=== PATIENT | female | born 1980 | race Caucasian/White ===

== ENCOUNTER 2017-01-15 14:05 | Emergency (ER) | payer SELFPAY ==
[2017-01-15] MEDS ORDERED: ASPIRIN 81 MG TABLET, CHEWABLE PO ONE (15:42)
--- NOTE | 2017-01-15 15:47 | ER Document Report ---
ED Medical Screen (RME) - General Chief Complaint: Shortness Of Breath Stated Complaint: CHEST PAIN/SHORTNESS OF BREATH Time seen by provider: 15:44 Mode of Arrival: Ambulatory Information source: Patient Notes: 36-year-old female presents to ED for chest pain chest tightness severe pressure shortness of breath headache and neck pain. She states that the pain sometimes radiates to the left breast and down her arm arm becomes very uncomfortable. She states this is been going on and off for the last couple days. She denies any runny nose states she does have some feeling like she needs to clear her throat frequently. She has a family history of her dad had a heart attack in his early 50s and of 59 from pulmonary fibrosis, her mother's brother had a heart attack at 60. She has a history of bronchitis bipolar anxiety depression and skin grafts to her face. She states she smokes about 15 cigarettes a day and smokes marijuana occasionally. Last menstrual period 01/06/[address] melendez when he stated this patient needed to have a cardiac workup. TRAVEL OUTSIDE OF THE [place] IN LAST 30 DAYS: No - HPI Onset: Other - Several days Onset/Duration: Intermittent Quality of pain: Pressure - Severe pressure and tightness - Related Data Allergies/Adverse Reactions: No Known Allergies Allergy (Unverified 01/20/12 21:30) Past Medical History Renal/ Medical History: Denies: Hx Peritoneal Dialysis Past Surgical History: Reports: Hx Section - x2 - Immunizations Hx Diphtheria, Pertussis, Tetanus Vaccination: Yes Physical Exam - Vital signs Vitals: Temp Pulse Resp BP Pulse Ox 98.1 F 78 20 123/78 100 01/15/17 14:38 01/15/17 14:38 01/15/17 14:38 01/15/17 14:38 01/15/17 14:38 Course - Vital Signs Vital signs: Temp Pulse Resp BP Pulse Ox 98.1 F 78 20 123/78 100 01/15/17 14:38 01/15/17 14:38 01/15/17 14:38 01/15/17 14:38 01/15/17 14:38
[2017-01-15 16:31] LABS: ABSOLUTE BASOPHILS # (AUTO) 0.1 10^3/uL (0.0-0.2); ABSOLUTE EOSINOPHILS # (AUTO) 0.3 10^3/uL (0.0-0.6); ABSOLUTE LYMPHOCYTES (AUTO) 4.2 10^3/uL (0.5-4.7); ABSOLUTE MONOCYTES (AUTO) 0.8 10^3/uL (0.1-1.4); ABSOLUTE NEUT (AUTO) 5.5 10^3/uL (1.7-8.2); BASOPHILS % (AUTO) 1.3 % (0-2); EOSINOPHILS % (AUTO) 2.6 % (0-6); HEMATOCRIT 45.1 % (36.0-47.0); HGB HCT DIFFERENCE -0.1; LYMPHOCYTES % (AUTO) 38.6 % (13-45); MEAN CORPUSCULAR HEMOGLOBIN 27.1 pg (27.0-33.4); MEAN CORPUSCULAR HGB CONC 33.2 g/dL (32.0-36.0); MEAN CORPUSCULAR VOLUME 82 fl (80-97); RED BLOOD COUNT 5.52 10^6/uL (3.72-5.28); RED CELL DISTRIBUTION WIDTH 15.9 % (11.5-14.0); SEGMENTED NEUTROPHILS % (AUTO) 50.5 % (42-78); WHITE BLOOD COUNT 10.9 10^3/uL (4.0-10.5)
--- NOTE | 2017-01-15 16:36 | ER Document Report ---
ED Cardiac - General Mode of Arrival: Ambulatory Information source: Patient TRAVEL OUTSIDE OF THE [place] IN LAST 30 DAYS: No - HPI Patient complains to provider of: Chest pain, Shortness of breath Chest pain location: Under breast - left Quality of pain: Other - see notes above Chest pain radiation location: Left arm Cardiac risk factors: Smoker Associated symptoms: Other - see notes above <ELTON VALDES - Last Filed: 01/15/17 16:30> <SUNG SETH - Last Filed: 01/15/17 18:23> - General Chief Complaint: Shortness Of Breath Stated Complaint: CHEST PAIN/SHORTNESS OF BREATH Notes: 36 year old female with history of chronic headaches presents to the ED complaining of a constant chest pain and headache for the past 2-3 days. Patient reports that her chest pain feels like as if a child is sitting on her chest and gets intermittent worsening flares of pain. Patient reports that the pain is sharp just under her left medial breast, but is dull as it radiates down her left arm to her fingers. Patient experiences sharp left breast pain with inspiration and dull pain with expiration. Patient has left eye pain that radiates to the head and down to the left shoulder. Patient denies history of heart disease, but reports that she has family history of it. (ELTON VALDES) - Related Data Allergies/Adverse Reactions: No Known Allergies Allergy (Verified 01/15/17 16:34) Past Medical History - General Information source: Patient - Social History Smoking Status: Current Every Day Smoker Family History: Other - heart disease Patient has suicidal ideation: Yes Patient has homicidal ideation: No Renal/ Medical History: Denies: Hx Peritoneal Dialysis Past Surgical History: Reports: Hx Section - x2 - Immunizations Hx Diphtheria, Pertussis, Tetanus Vaccination: Yes <ELTON VALDES - Last Filed: 01/15/17 16:30> Review of Systems - Review of Systems Constitutional: No symptoms reported EENT: See HPI, Eye pain - left eye pain that radiates to the head and left shoulder Cardiovascular: See HPI, Chest pain - under left breast Respiratory: See HPI, Hurts to breathe Gastrointestinal: No symptoms reported Genitourinary: No symptoms reported Female Genitourinary: No symptoms reported Musculoskeletal: No symptoms reported Skin: No symptoms reported Hematologic/Lymphatic: No symptoms reported Neurological/Psychological: No symptoms reported -: Yes All other systems reviewed and negative <VALDES,ELTON - Last Filed: 01/15/17 16:30> Physical Exam - General General appearance: Alert In distress: None - HEENT Head: Normocephalic, Atraumatic Eyes: Normal Extraocular movements intact: Yes Pupils: PERRL - Respiratory Respiratory status: No respiratory distress Chest status: Tender Breath sounds: Normal Chest palpation: Tender - Reproducible left parasternal and medial breast tenderness to palpation. Winces in pain with palpation. - Cardiovascular Rhythm: Regular Heart sounds: Normal auscultation - Abdominal Inspection: Normal - Back Back: Normal - Extremities General upper extremity: Normal inspection, Normal ROM General lower extremity: Normal inspection, Nontender - no calf tenderness, Normal ROM. No: Edema - Neurological Neuro grossly intact: Yes Cognition: Normal Orientation: AAOx4 [place] Coma Scale Eye Opening: Spontaneous [place] Coma Scale Verbal: Oriented [place] Coma Scale Motor: Obeys Commands Ravi Coma Scale Total: 15 Speech: Normal - Psychological Associated symptoms: Normal affect, Normal mood - Skin Skin Temperature: Warm Skin Moisture: Dry Skin Color: Normal <ELTON VALDES - Last Filed: 01/15/17 16:30> Course - Laboratory Result Diagrams: 01/15/17 16:20 01/15/17 16:20 <ELTON VALDES - Last Filed: 01/15/17 16:30> - Laboratory Result Diagrams: 01/15/17 16:20 01/15/17 16:20 <SUNG SETH - Last Filed: 01/15/17 18:23> - Re-evaluation Re-evalutation: 01/15/17 18:17 Clinically the pain seems to be more chest wall but differential diagnosis was discussed with the patient. She has a low heart score. She had significant reproducibility with chest palpation. Discussed with her lifestyle modifications including smoking cessation. She voices understanding and will get follow-up or return if worsening. (SUNG SETH) - Vital Signs Vital signs: Temp Pulse Resp BP Pulse Ox 98.1 F 78 20 123/78 100 01/15/17 14:38 01/15/17 14:38 01/15/17 14:38 01/15/17 14:38 01/15/17 14:38 - Laboratory Laboratory results interpreted by me: 01/15/17 01/15/17 16:20 16:20 WBC 10.9 H RBC 5.52 H RDW 15.9 H Sodium 145.4 H Calcium 10.4 H Total Protein 8.3 H Albumin 5.1 H Discharge <ELTON VALDES - Last Filed: 01/15/17 16:30> <SUNG SETH - Last Filed: 01/15/17 18:23> - Discharge Clinical Impression: Chest pain Condition: Good Disposition: HOME, SELF-CARE Additional Instructions: You have been diagnosed with Chest Pain.~ Currently, there is no identified emergent medical condition.~ Though most causes of chest pain are benign, please return immediately if you are worsening, develop fever > 100.5, or for other concern. All medications prescribed should be taken as directed on the label. Any medication may cause side effects. If an adverse effect occurs, notify your doctor or return to the emergency room.~ Narcotics or sedatives may cause drowsiness, therefore, you should not drive, operate machinery, climb ladders, etc. Alcohol should never be used while taking these medications.~ Pain medications also can cause significant constipation so you should use a stool softener if you are using any significant amount.~ Antibiotics should be taken until the entire amount is finished. Unless specifically told otherwise, continue any routine medicines like blood pressure pills, hormones, etc. Be sure you have informed us about any medicines you are taking and any allergies. Also, ensure you let your pharmacy and physician know of any medication changes or additional medications during the next business day to help keep records consistent and ensure your medication safety. You have been seen in the Emergency Department for evaluation to identify and treat any emergent medical conditions.~ Though all emergent medical conditions are evaluated, it is impossible to evaluate all conditions in the Emergency Department setting. As such, a follow-up appointment with a physician/medical provider and obtaining regular medical care is mandatory.~ You will need to establish a primary care physician for these reasons. If you have difficulty obtaining a primary care physician, please contact your insurance company.~ If you are uninsured and have difficulty, you should contact a bilingual patient support caseworker or consider care through your formerly [facility]. Because you do not have a primary care provider you have been referred for follow up. This referral is ONLY for the follow up of this acute need. You must call ahead for an appointment to be seen in their office as you will not be seen if you arrive at their office without an appointment. Please take your ED discharge instructions to your follow up doctor's appointment. If you are interested in having the referral provider continue to see you after the initial ED follow up appointment, you will be required to follow the process of the office practice for accepting new patients. Prescriptions: Acetaminophen with Codeine [Tylenol #3 Tablet] 1 each PO Q4HP PRN #14 tablet PRN Reason: Forms: Smoking Cessation Education Referrals: [facility] [Provider Group] - Follow up as needed Scribe Attestation: 01/15/17 18:23 I personally performed the services described in the documentation, reviewed and edited the documentation which was dictated to the scribe in my presence, and it accurately records my words and actions. (SUNG SETH) Scribe Documentation - Scribe Written by Erine:: Tuan Ponce, 01/15/2017 1648 acting as scribe for :: Cesar <ELTON VALDES - Last Filed: 01/15/17 16:30>
[2017-01-15 16:45] LABS: ALANINE AMINOTRANSFERASE 44 U/L (9-52); ALBUMIN 5.1 g/dL (3.5-5.0); ALKALINE PHOSPHATASE 91 U/L (38-126); ANION GAP 14 (5-19); ASPARTATE AMINO TRANSFERASE 34 U/L (14-36); BILIRUBIN,DIRECT 0.4 mg/dL (0.0-0.4); BILIRUBIN,TOTAL 0.6 mg/dL (0.2-1.3); BLOOD UREA NITROGEN 8 mg/dL (7-20); CALCIUM 10.4 mg/dL (8.4-10.2); CARBON DIOXIDE 28 mmol/L (22-30); CHLORIDE 103 mmol/L (98-107); CREATINE KINASE 66 U/L (30-135); CREATININE RESULT 0.65 mg/dL (0.52-1.25); GLUCOSE 85 mg/dL (75-110); MAGNESIUM 2.2 mg/dL (1.6-2.3); POTASSIUM 4.5 mmol/L (3.6-5.0); SODIUM 145.4 mmol/L (137-145); TOTAL PROTEIN 8.3 g/dL (6.3-8.2)
[2017-01-15 16:58] LABS: CREATINE KINASE MB < 0.22 ng/mL (<4.55); TROPONIN I < 0.012 ng/mL
[2017-01-15 18:49] VITALS: BP 128/72
--- NOTE | 2017-01-15 21:40 | EKG REPORT ---
SEVERITY:- NORMAL ECG - SINUS RHYTHM : Confirmed by: Aleksandra Vinson 15-Jan-2017 21:39:31
== END 2017-01-15 18:49 | disposition home or self-care (01) ==
LOC: ER 14:05
DX: R07.9 Chest pain, unspecified (principal); R06.02 Shortness of breath; R51 Headache; H57.12 Ocular pain, left eye; F17.200 Nicotine dependence, unspecified, uncomplicated
CPT/HCPCS: 36415; 71020; 80053; 82550; 82553; 83735; 84443; 84484; 85025; 85379; 93005; 93010; 99285

== ENCOUNTER 2017-11-08 22:09 | Emergency (ER) | payer SELFPAY ==
[2017-11-08 22:45] LABS: APPEARANCE,URINE CLEAR; BILIRUBIN,URINE NEGATIVE (NEGATIVE); COLOR,URINE COLORLESS; GLUCOSE, URINE NEGATIVE (NEGATIVE); KETONES,URINE NEGATIVE (NEGATIVE); LEUKOCYTE ESTERASE,URINE NEGATIVE (NEGATIVE); NITRITE,URINE NEGATIVE (NEGATIVE); PROTEIN,URINE NEGATIVE (NEGATIVE); URINE SPECIFIC GRAVITY 1.003; UROBILINOGEN,URINE NEGATIVE mg/dL (<2.0)
--- NOTE | 2017-11-09 00:57 | ER Document Report ---
ED Skin Rash/Insect Bite/Abscs - General Chief Complaint: Rash Stated Complaint: RASH Time Seen by Provider: 11/09/17 00:14 Mode of Arrival: Ambulatory Information source: Patient Notes: 37-year-old female presents to the ED for complaint of rash to neck chest and abdomen fever 2 days but she did not take her temperature and body aches. TRAVEL OUTSIDE OF THE [place] IN LAST 30 DAYS: No - HPI Patient complains to provider of: Skin rash/lesion, Other - Body aches and feels like she had a fever Onset: Other - She states rashes been there may be a week or 2 steadily increasing. Body aches for the last several days and feeling like she had a fever for the last 2 days Onset/Duration: Gradual Quality of pain: Achy - Body aches Severity: Mild Pain Level: 1 Skin Character: Rash Quality of rash: Itchy Identify cause: No Exacerbated by: Denies Relieved by: Denies Similar symptoms previously: No Recently seen / treated by doctor: No - Related Data Allergies/Adverse Reactions: No Known Allergies Allergy (Verified 01/15/17 16:34) Past Medical History - General Information source: Patient - Social History Smoking Status: Former Smoker - States she quit smoking recently Cigarette use (# per day): No Chew tobacco use (# tins/day): No Smoking Education Provided: No Frequency of alcohol use: Rare Drug Abuse: Marijuana 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 denies: CVA, DM, Thyroid Disfunction Patient has suicidal ideation: No Patient has homicidal ideation: No - Past Medical History Cardiac Medical History: Reports: None Pulmonary Medical History: Reports: Hx Bronchitis EENT Medical History: Reports: None Neurological Medical History: Reports: None Endocrine Medical History: Reports: None Renal/ Medical History: Reports: Hx Ovarian Cysts, Other - Endometriosis, moderate dysplasia of cervix Malignancy Medical History: Reports: None GI Medical History: Reports: Hx Irritable Bowel Musculoskeltal Medical History: Reports Hx Musculoskeletal Trauma Skin Medical History: Reports None Psychiatric Medical History: Reports: None Traumatic Medical History: Reports: Hx Fractures - Toes and nose Infectious Medical History: Reports: None Past Surgical History: Reports: Hx Section - x2, Hx Gynecologic Surgery - LEEP procedure for moderate dysplasia, Other - Facial skin grafts and plastic surgery - Immunizations Immunizations up to date: Yes Hx Diphtheria, Pertussis, Tetanus Vaccination: Yes Review of Systems - Review of Systems Constitutional: No symptoms reported EENT: Nose discharge, Sinus pressure, Sinus discharge Cardiovascular: No symptoms reported Respiratory: No symptoms reported Gastrointestinal: No symptoms reported Genitourinary: No symptoms reported Female Genitourinary: No symptoms reported Musculoskeletal: Muscle pain - Body aches Skin: Rash - Neck chest and abdomen Hematologic/Lymphatic: No symptoms reported Neurological/Psychological: No symptoms reported Physical Exam - Vital signs Vitals: Temp Pulse BP Pulse Ox 99.0 F 61 142/59 H 97 11/08/17 22:25 11/08/17 22:25 11/08/17 22:25 11/08/17 22:25 Interpretation: Normal - General General appearance: Appears well, Alert - HEENT Head: Normocephalic, Atraumatic Eyes: Normal Pupils: PERRL - Respiratory Respiratory status: No respiratory distress Chest status: Nontender Breath sounds: Normal Chest palpation: Normal - Cardiovascular Rhythm: Regular Heart sounds: Normal auscultation Murmur: No - Abdominal Inspection: Normal Distension: No distension Bowel sounds: Normal Tenderness: Nontender Organomegaly: No organomegaly - Back Back: Normal, Nontender - Extremities General upper extremity: Normal inspection, Nontender, Normal color, Normal ROM , Normal temperature General lower extremity: Normal inspection, Nontender, Normal color, Normal ROM , Normal temperature, Normal weight bearing. No: Ian's sign - Neurological Neuro grossly intact: Yes Cognition: Normal Orientation: AAOx4 [place] Coma Scale Eye Opening: Spontaneous Ravi Coma Scale Verbal: Oriented [place] Coma Scale Motor: Obeys Commands Ravi Coma Scale Total: 15 Speech: Normal Motor strength normal: LUE, RUE, LLE, RLE Sensory: Normal - Psychological Associated symptoms: Normal affect, Normal mood - Skin Skin Temperature: Warm Skin Moisture: Dry Skin Color: Normal Skin irregularity: Rash Location of irregularity: Neck, Abdomen, Chest Irregularity with: Scaling - Circular, Crusting, Other - Circular Course - Re-evaluation Re-evalutation: 11/09/17 01:44 Signs and symptoms consistent with an upper respiratory infection was ringworm to the abdomen chest and neck. Patient was instructed on care of ringworm. Prescription written for ketoconazole. Patient to follow-up with her primary doctor. - Vital Signs Vital signs: Temp Pulse Resp BP Pulse Ox 98.4 F 64 14 120/56 L 98 11/09/17 01:18 11/09/17 01:18 11/09/17 01:18 11/09/17 01:18 11/09/17 01:18 - Laboratory Laboratory results interpreted by me: 11/08/17 22:25 Urine Blood SMALL H Discharge - Discharge Clinical Impression: Ringworm of body URI (upper respiratory infection) Qualifiers: URI type: unspecified URI Qualified Code(s): J06.9 - Acute upper respiratory infection, unspecified HTN (hypertension) Qualifiers: Hypertension type: unspecified Qualified Code(s): I10 - Essential (primary) hypertension Condition: Stable Disposition: HOME, SELF-CARE Instructions: Family Physicians / Practices Additional Instructions: Ringworm (Tinea Corporis) You have a fungal infection of the skin, called tinea corporis. This is sometimes called "ringworm." because it tends forms an enlarging ring on the skin. The infection results from exposure to another person or an animal carrying the fungus, but it is only mildly contagious. There can be mild itching , or sometimes no symptoms at all. The infection is usually treated with antifungal cream. This is applied two or three times daily. Healing may take two or three weeks. Occasionally, oral medication is necessary, for example, when the infection if very large, or if fungus involves the scalp or nails. Fingernail or toenail infections are very difficult to eradicate, often requiring many weeks of treatment. Return for re-examination if your symptoms change significantly -- for example, if you develop fever or chills, red streaks, increasing tenderness, swelling, or blisters at the infection site. UPPER RESPIRATORY ILLNESS: You have a viral infection of the respiratory passages -- a "cold." This common infection causes nasal congestion, drainage, and often sore throat and cough. It is highly contagious. The disease usually lasts about 10 to 14 days. There is no "cure" for the viral infection -- it must run its course. If there is a complication, such as bacterial infection in the nose, sinuses, middle ear, or bronchial tubes, antibiotics may be required. The antibiotics won't affect the virus. Drink plenty of fluids. A humidifier may help. An expectorant medication or decongestant may make you more comfortable. Use acetaminophen or ibuprofen for fever or aches. See the doctor if fever persists over two days, if there is any significant worsening of your symptoms, or if you simply fail to improve as expected. DECONGESTANT MEDICATION: A decongestant medicine has been prescribed. Often this medicine is combined in the same tablet with an antihistamine or expectorant. This type of medicine is helpful in treating a bad cold or sinus condition, as well as in treatment of the nasal congestion of hay fever. It is not of much benefit for lung infections. Decongestant medicines are related to stimulants. They can cause an increase in blood pressure and heart rate. Persons with heart disease and high blood pressure should not take decongestants without discussing this with the physician. If you develop palpitations, chest pain, headache, or tremors, stop the medicine and consult your physician. COUGH-SUPPRESSANT & EXPECTORANT MEDICATION: You are to use a cough medication as needed for relief of symptoms. This medicine is a combination of an expectorant (to make the mucous thinner and more easily "coughed up") and a cough suppressant (to reduce the frequency of coughing). The cough-suppressant medicine is related to narcotics. You may experience mild nausea and sleepiness. Some patients who are very sensitive to narcotics may have stomach pain from this medicine. Taking the medicine with food reduces these side effects. Do not drive or work with machinery until you know how this medicine affects you. The expectorant should have no side effects. Iodine-containing expectorants (such as organidin) should not be taken by persons with active thyroid disease unless approved by your doctor. Call the doctor if you develop shortness of breath, hives, rash, itching, lightheadedness, or severe nausea and vomiting. USE OF ACETAMINOPHEN (Tylenol): Acetaminophen may be taken for pain relief or fever control. It's much safer than aspirin, offering a wider range of "safe" dosages. It is safe during . Some brand names are Tylenol, Panadol, Datril, Anacin 3, Tempra, and Liquiprin. Acetaminophen can be repeated every four hours. The following are maximum recommended dosages: >89 pounds or adults 650 mg to 900 mg Acetaminophen can be repeated every four hours. Maximum dose not to exceed 4000 mg a day. Wash 3 times a day with mild soap rinse well pat dry and apply ketoconazole to affected areas. FOLLOW-UP CARE: If you have been referred to a physician for follow-up care, call the physician s office for an appointment as you were instructed or within the next two days. If you experience worsening or a significant change in your symptoms, notify the physician immediately or return to the Emergency Department at any time for re-evaluation. Prescriptions: Ketoconazole [Nizoral] 30 gm TP TID #30 cream.gm. Forms: Elevated Blood Pressure
[2017-11-09 01:19] VITALS: BP 120/56
== END 2017-11-09 01:18 | disposition home or self-care (01) ==
LOC: ER 22:09
DX: B35.4 Tinea corporis (principal); J06.9 Acute upper respiratory infection, unspecified; J34.89 Other specified disorders of nose and nasal sinuses; M79.1 Myalgia; I10 Essential (primary) hypertension; Z87.891 Personal history of nicotine dependence
CPT/HCPCS: 81001; 99283

== ENCOUNTER 2017-12-17 18:00 | Emergency (ER) | payer SELFPAY ==
--- NOTE | 2017-12-17 19:07 | EKG REPORT ---
SEVERITY:- NORMAL ECG - SINUS RHYTHM : Confirmed by: Danilo Moncada MD 17-Dec-2017 19:06:02
[2017-12-17 19:39] LABS: APPEARANCE,URINE CLEAR; BILIRUBIN,URINE NEGATIVE (NEGATIVE); COLOR,URINE STRAW; GLUCOSE, URINE NEGATIVE (NEGATIVE); KETONES,URINE NEGATIVE (NEGATIVE); LEUKOCYTE ESTERASE,URINE NEGATIVE (NEGATIVE); NITRITE,URINE NEGATIVE (NEGATIVE); PROTEIN,URINE NEGATIVE (NEGATIVE); URINE SPECIFIC GRAVITY 1.002; UROBILINOGEN,URINE NEGATIVE mg/dL (<2.0)
--- NOTE | 2017-12-17 20:00 | ER Document Report ---
ED Medical Screen (RME) - General Chief Complaint: Chest Pain Stated Complaint: DIZZINESS Time Seen by Provider: 12/17/17 19:58 Notes: Patient states that she has had 2 relatives of abdominal aortic aneurysms. She states she feels a pulsating mass in her abdomen and was concerned about this given her family history. She also states that she has had chest pain shortness of breath lightheadedness and dizziness. Patient states she has a history of anxiety and this does not feel like her previous anxiety attacks. TRAVEL OUTSIDE OF THE [place] IN LAST 30 DAYS: No - Related Data Allergies/Adverse Reactions: No Known Allergies Allergy (Verified 12/17/17 18:05) Past Medical History Pulmonary Medical History: Reports: Hx Bronchitis Renal/ Medical History: Reports: Hx Ovarian Cysts. Denies: Hx Peritoneal Dialysis GI Medical History: Reports: Hx Irritable Bowel Musculoskeltal Medical History: Reports Hx Musculoskeletal Trauma Traumatic Medical History: Reports: Hx Fractures - Toes and nose Past Surgical History: Reports: Hx Section - x2, Hx Gynecologic Surgery - LEEP procedure for moderate dysplasia, Other - Facial skin grafts and plastic surgery - Immunizations Immunizations up to date: Yes Hx Diphtheria, Pertussis, Tetanus Vaccination: Yes Physical Exam - Vital signs Vitals: Temp Pulse Resp BP Pulse Ox 98.8 F 76 18 132/81 H 99 12/17/17 18:32 12/17/17 18:32 12/17/17 18:32 12/17/17 18:32 12/17/17 18:32 Course - Vital Signs Vital signs: Temp Pulse Resp BP Pulse Ox 98.8 F 76 18 132/81 H 99 12/17/17 18:32 12/17/17 18:32 12/17/17 18:32 12/17/17 18:32 12/17/17 18:32 - Laboratory Laboratory results interpreted by me: 12/17/17 18:18 Urine Blood SMALL H
[2017-12-17 21:13] LABS: ABSOLUTE BASOPHILS # (AUTO) 0.1 10^3/uL (0.0-0.2); ABSOLUTE EOSINOPHILS # (AUTO) 0.9 10^3/uL (0.0-0.6); ABSOLUTE LYMPHOCYTES (AUTO) 4.1 10^3/uL (0.5-4.7); ABSOLUTE MONOCYTES (AUTO) 0.8 10^3/uL (0.1-1.4); ABSOLUTE NEUT (AUTO) 5.5 10^3/uL (1.7-8.2); BASOPHILS % (AUTO) 1.1 % (0-2); EOSINOPHILS % (AUTO) 7.8 % (0-6); HEMATOCRIT 40.5 % (36.0-47.0); HEMOGLOBIN 12.9 g/dL (12.0-15.5); MEAN CORPUSCULAR HGB CONC 31.9 g/dL (32.0-36.0); MEAN CORPUSCULAR VOLUME 82 fl (80-97); MONOCYTES % (AUTO) 7.3 % (3-13); PLATELET COUNT 272 10^3/uL (150-450); RED BLOOD COUNT 4.97 10^6/uL (3.72-5.28); RED CELL DISTRIBUTION WIDTH 16.3 % (11.5-14.0); SEGMENTED NEUTROPHILS % (AUTO) 47.8 % (42-78); TOTAL CELLS COUNTED % (AUTO) 100 %; WHITE BLOOD COUNT 11.4 10^3/uL (4.0-10.5)
[2017-12-17 21:30] LABS: ALANINE AMINOTRANSFERASE 65 U/L (9-52); ALBUMIN 4.7 g/dL (3.5-5.0); ALKALINE PHOSPHATASE 81 U/L (38-126); ANION GAP 10 (5-19); ASPARTATE AMINO TRANSFERASE 37 U/L (14-36); BILIRUBIN,DIRECT 0.3 mg/dL (0.0-0.4); BILIRUBIN,TOTAL 0.4 mg/dL (0.2-1.3); BLOOD UREA NITROGEN 8 mg/dL (7-20); CARBON DIOXIDE 25 mmol/L (22-30); CHLORIDE 105 mmol/L (98-107); GLUCOSE 81 mg/dL (75-110); POTASSIUM 3.9 mmol/L (3.6-5.0); TOTAL PROTEIN 7.6 g/dL (6.3-8.2)
--- NOTE | 2017-12-17 23:40 | ER Document Report ---
ED General - General Chief Complaint: Chest Pain Stated Complaint: DIZZINESS Time Seen by Provider: 12/17/17 19:58 TRAVEL OUTSIDE OF THE [place] IN LAST 30 DAYS: No - HPI Patient complains to provider of: Shortness of breath abdominal pulsating chest pain Notes: Patient with multiple varying complaints ongoing for the last 3 days. Patient states her biggest concern is some lower abdominal pain feeling some pulsating in her abdomen has a history of AAA through her family. Patient states lightheaded dizziness shortness of breath intermittent chest pain ongoing for the last 3 days. Denies any fevers chills nausea vomiting. Resting comfortably states that she is currently a symptomatically feeling much better. Denies any recent travel denies any recent changes any medications. - Related Data Allergies/Adverse Reactions: No Known Allergies Allergy (Verified 12/17/17 18:05) Past Medical History - Social History Smoking Status: Former Smoker Chew tobacco use (# tins/day): No Frequency of alcohol use: None Drug Abuse: Marijuana Family History: Arthritis, CAD, COPD, Hyperlipidemia, Hypertension, Malignancy, Other - heart disease. denies: CVA, DM, Thyroid Disfunction Patient has suicidal ideation: No Patient has homicidal ideation: No Pulmonary Medical History: Reports: Hx Bronchitis Renal/ Medical History: Reports: Hx Ovarian Cysts. Denies: Hx Peritoneal Dialysis GI Medical History: Reports: Hx Irritable Bowel Musculoskeltal Medical History: Reports Hx Musculoskeletal Trauma Traumatic Medical History: Reports: Hx Fractures - Toes and nose Past Surgical History: Reports: Hx Section - x2, Hx Gynecologic Surgery - LEEP procedure for moderate dysplasia, Other - Facial skin grafts and plastic surgery - Immunizations Immunizations up to date: Yes Hx Diphtheria, Pertussis, Tetanus Vaccination: Yes Review of Systems - Review of Systems Constitutional: No symptoms reported EENT: No symptoms reported Cardiovascular: Chest pain Respiratory: Short of breath Gastrointestinal: No symptoms reported Genitourinary: No symptoms reported Female Genitourinary: No symptoms reported Musculoskeletal: No symptoms reported Skin: No symptoms reported Hematologic/Lymphatic: No symptoms reported Neurological/Psychological: No symptoms reported -: Yes All other systems reviewed and negative Physical Exam - Vital signs Vitals: Temp Pulse Resp BP Pulse Ox 98.8 F 76 18 132/81 H 99 12/17/17 18:32 12/17/17 18:32 12/17/17 18:32 12/17/17 18:32 12/17/17 18:32 Interpretation: Normal - General General appearance: Appears well, Alert - HEENT Head: Normocephalic, Atraumatic Eyes: Normal Pupils: PERRL - Respiratory Respiratory status: No respiratory distress Chest status: Nontender Breath sounds: Normal Chest palpation: Normal - Cardiovascular Rhythm: Regular Heart sounds: Normal auscultation Murmur: No - Abdominal Inspection: Obese Distension: No distension Bowel sounds: Normal Tenderness: Nontender Organomegaly: No organomegaly - Back Back: Normal, Nontender - Extremities General upper extremity: Normal inspection, Nontender, Normal color, Normal ROM , Normal temperature General lower extremity: Normal inspection, Nontender, Normal color, Normal ROM , Normal temperature, Normal weight bearing. No: Ian's sign - Neurological Neuro grossly intact: Yes Cognition: Normal Orientation: AAOx4 Pickett Coma Scale Eye Opening: Spontaneous Ravi Coma Scale Verbal: Oriented Pickett Coma Scale Motor: Obeys Commands Pickett Coma Scale Total: 15 Speech: Normal Motor strength normal: LUE, RUE, LLE, RLE Sensory: Normal - Psychological Associated symptoms: Normal affect, Normal mood - Skin Skin Temperature: Warm Skin Moisture: Dry Skin Color: Normal Course - Re-evaluation Re-evalutation: 12/17/17 23:39 Laboratory studies not show any concerning pathology. EKG does not show any acute pathology. Patient again is most concerned about possibility of a aortic aneurysm therefore we will get a ultrasound. Otherwise patient resting comfortably working on her computer 12/18/17 00:56 Ultrasound is negative. Patient again resting comfortably. Will be discharged home. The patient has atypical chest pain as the patient's chest pain is not suggestive of pulmonary embolus, cardiac ischemia, aortic dissection, or other serious etiology. Given the extremely low risk of these diagnoses further testing and evaluation for these possibilities does not appear to be indicated at this time. The patient has been instructed to return if the symptoms worsen or change in any way. - Vital Signs Vital signs: Temp Pulse Resp BP Pulse Ox 97.7 F 78 18 123/69 100 12/18/17 01:25 12/18/17 01:25 12/18/17 01:25 12/18/17 01:25 12/18/17 01:25 - Laboratory Result Diagrams: 12/17/17 21:00 12/17/17 21:00 Laboratory results interpreted by me: 12/17/17 12/17/17 12/17/17 18:18 21:00 21:00 WBC 11.4 H MCH 26.0 L MCHC 31.9 L RDW 16.3 H Eosinophils % 7.8 H Absolute Eosinophils 0.9 H AST 37 H ALT 65 H Urine Blood SMALL H Discharge - Discharge Clinical Impression: Abdominal complaints Dyspnea Qualifiers: Dyspnea type: unspecified Qualified Code(s): R06.00 - Dyspnea, unspecified Instructions: Chest Wall Pain ([facility]), Chest Pain of Unclear Cause ([facility]), Dyspnea , Nonspecific ([facility]) Additional Instructions: Your evaluation night shows no abnormal laboratory findings your ultrasound also shows a normal aorta. I recommend following up with the clinic provided or primary care. I would recommend taking [id number] antihistamine as some your symptoms may be allergy related.. Return to ER if symptoms worsen take medications as prescribed. Forms: Return to Work
--- NOTE | 2017-12-18 00:17 | RADIOLOGY REPORT (SQ) ---
EXAM DESCRIPTION: U/S ABD AORTIC SCREENING CLINICAL HISTORY: 37 years, Female, family hx AAA low abd pulsationg COMPARISON: None. LIMITATIONS: As below. FINDINGS: Minimal amount of the mid-distal abdominal aorta is partially obscured due to bowel gas. Abdominal aorta measurements: Proximal: 2.0 cm diameter. Mid: 1.9 cm diameter. Distal: 1.6 cm diameter. Right common iliac artery: 0.7 cm diameter. Left common iliac artery: 0.6 cm in diameter IMPRESSION: No acute findings. Limitation.
[2017-12-18 01:27] VITALS: BP 123/69
== END 2017-12-18 01:25 | disposition home or self-care (01) ==
LOC: ER 18:00
DX: R10.30 Lower abdominal pain, unspecified (principal); R06.00 Dyspnea, unspecified; R07.9 Chest pain, unspecified; R42 Dizziness and giddiness; Z86.79 Personal history of other diseases of the circulatory system; Z87.891 Personal history of nicotine dependence
CPT/HCPCS: 36415; 76706; 80053; 81001; 81025; 84484; 85025; 93005; 93010; 99284

== ENCOUNTER 2018-10-20 13:50 | Emergency (ER) | payer BC ==
[2018-10-20] MEDS ORDERED: ONDANSETRON 4 MG TAB.RAPDIS PO ONE (14:12)
--- NOTE | 2018-10-20 14:13 | ER Document Report ---
ED Medical Screen (RME) - General Chief Complaint: Vomiting Stated Complaint: VOMITING Time Seen by Provider: 10/20/18 14:08 Notes: 38-year-old female patient reports cough and congestion which is worse at night and clear frothy sputum for the past week. She also reports onset of vomiting when she eats, and states the vomiting is due to nausea not coughing. She also reports she is having a bilious type reflux. There is some burning substernal discomfort with the bilious reflux, but no abdominal pain. She also noticed some blood in what she is refluxing in the past day. I have greeted and performed a rapid initial assessment of this patient. A comprehensive ED assessment and evaluation of the patient, analysis of test results and completion of the medical decision making process will be conducted by additional ED providers. TRAVEL OUTSIDE OF THE [place] IN LAST 30 DAYS: No - Related Data Allergies/Adverse Reactions: No Known Allergies Allergy (Verified 10/20/18 13:53) Past Medical History Pulmonary Medical History: Reports: Hx Bronchitis Renal/ Medical History: Reports: Hx Ovarian Cysts. Denies: Hx Peritoneal Dialysis GI Medical History: Reports: Hx Irritable Bowel Musculoskeltal Medical History: Reports Hx Musculoskeletal Trauma Traumatic Medical History: Reports: Hx Fractures - Toes and nose Past Surgical History: Reports: Hx Section - x2, Hx Gynecologic Surgery - LEEP procedure for moderate dysplasia, Other - Facial skin grafts and plastic surgery - Immunizations Immunizations up to date: Yes Hx Diphtheria, Pertussis, Tetanus Vaccination: Yes Physical Exam - Vital signs Vitals: Temp Pulse Resp BP Pulse Ox 99.0 F 77 20 142/80 H 99 10/20/18 14:02 10/20/18 14:02 10/20/18 14:02 10/20/18 14:02 10/20/18 14:02 Course - Vital Signs Vital signs: Temp Pulse Resp BP Pulse Ox 99.0 F 77 20 142/80 H 99 10/20/18 14:02 10/20/18 14:02 10/20/18 14:02 10/20/18 14:02 10/20/18 14:02
[2018-10-20 14:43] LABS: ABSOLUTE BASOPHILS # (AUTO) 0.1 10^3/uL (0.0-0.2); ABSOLUTE EOSINOPHILS # (AUTO) 0.1 10^3/uL (0.0-0.6); ABSOLUTE LYMPHOCYTES (AUTO) 2.9 10^3/uL (0.5-4.7); ABSOLUTE MONOCYTES (AUTO) 0.7 10^3/uL (0.1-1.4); ABSOLUTE NEUT (AUTO) 4.9 10^3/uL (1.7-8.2); BASOPHILS % (AUTO) 1.1 % (0-2); EOSINOPHILS % (AUTO) 1.4 % (0-6); HEMATOCRIT 38.4 % (36.0-47.0); LYMPHOCYTES % (AUTO) 33.2 % (13-45); MEAN CORPUSCULAR HGB CONC 33.7 g/dL (32.0-36.0); MEAN CORPUSCULAR VOLUME 80 fl (80-97); MONOCYTES % (AUTO) 8.5 % (3-13); PLATELET COUNT 279 10^3/uL (150-450); RED CELL DISTRIBUTION WIDTH 15.4 % (11.5-14.0); SEGMENTED NEUTROPHILS % (AUTO) 55.8 % (42-78); TOTAL CELLS COUNTED % (AUTO) 100 %; WHITE BLOOD COUNT 8.8 10^3/uL (4.0-10.5)
[2018-10-20 14:50] LABS: APPEARANCE,URINE CLEAR; BILIRUBIN,URINE NEGATIVE (NEGATIVE); COLOR,URINE STRAW; GLUCOSE, URINE NEGATIVE (NEGATIVE); KETONES,URINE NEGATIVE (NEGATIVE); LEUKOCYTE ESTERASE,URINE NEGATIVE (NEGATIVE); NITRITE,URINE NEGATIVE (NEGATIVE); PROTEIN,URINE NEGATIVE (NEGATIVE); URINE SPECIFIC GRAVITY 1.004; UROBILINOGEN,URINE NEGATIVE mg/dL (<2.0)
[2018-10-20 15:01] LABS: ALANINE AMINOTRANSFERASE 82 U/L (9-52); ALBUMIN 4.6 g/dL (3.5-5.0); ALKALINE PHOSPHATASE 99 U/L (38-126); ANION GAP 8 (5-19); ASPARTATE AMINO TRANSFERASE 44 U/L (14-36); BILIRUBIN,DIRECT 0.1 mg/dL (0.0-0.4); BILIRUBIN,TOTAL 0.3 mg/dL (0.2-1.3); BLOOD UREA NITROGEN 7 mg/dL (7-20); CALCIUM 9.3 mg/dL (8.4-10.2); CARBON DIOXIDE 29 mmol/L (22-30); CHLORIDE 103 mmol/L (98-107); GLUCOSE 93 mg/dL (75-110); POTASSIUM 3.8 mmol/L (3.6-5.0); SODIUM 139.5 mmol/L (137-145); TOTAL PROTEIN 7.2 g/dL (6.3-8.2)
[2018-10-20] MEDS ORDERED: METOCLOPRAMIDE HCL ORAL SOLN 10 MG/10 ML UDCUP PO ONE (15:24)
[2018-10-20] MEDS ORDERED: LIDOCAINE 2% VISCOUS SOLN 20 ML UDCUP PO ONE (15:24)
[2018-10-20] MEDS ORDERED: MAG HYDROX/AL HYDROX/SIMETH SUSP 30 ML UDCUP PO ONE (15:24)
--- NOTE | 2018-10-20 16:24 | ER Document Report ---
ED GI/ - General Chief Complaint: Vomiting Stated Complaint: VOMITING Time Seen by Provider: 10/20/18 14:08 TRAVEL OUTSIDE OF THE [place] IN LAST 30 DAYS: No - Related Data Allergies/Adverse Reactions: Latex, Natural Rubber Allergy (Verified 10/20/18 14:19) Past Medical History - Social History Smoking Status: Former Smoker Frequency of alcohol use: None Drug Abuse: Marijuana Family History: Arthritis, CAD, COPD, Hyperlipidemia, Hypertension, Malignancy, Other - heart disease. denies: CVA, DM, Thyroid Disfunction Patient has suicidal ideation: No Patient has homicidal ideation: No Pulmonary Medical History: Reports: Hx Bronchitis Renal/ Medical History: Reports: Hx Ovarian Cysts. Denies: Hx Peritoneal Dialysis GI Medical History: Reports: Hx Irritable Bowel Musculoskeletal Medical History: Reports Hx Musculoskeletal Trauma Traumatic Medical History: Reports: Hx Fractures - Toes and nose Past Surgical History: Reports: Hx Section - x2, Hx Gynecologic Surgery - LEEP procedure for moderate dysplasia, Other - Facial skin grafts and plastic surgery - Immunizations Immunizations up to date: Yes Hx Diphtheria, Pertussis, Tetanus Vaccination: Yes Physical Exam - Vital signs Vitals: Temp Pulse Resp BP Pulse Ox 99.0 F 77 20 142/80 H 99 10/20/18 14:02 10/20/18 14:02 10/20/18 14:02 10/20/18 14:02 10/20/18 14:02 Course - Vital Signs Vital signs: Temp Pulse Resp BP Pulse Ox 99.0 F 77 20 142/80 H 99 10/20/18 14:02 10/20/18 14:02 10/20/18 14:02 10/20/18 14:02 10/20/18 14:02 - Laboratory Result Diagrams: 10/20/18 14:25 10/20/18 14:25 Laboratory results interpreted by me: 10/20/18 10/20/18 14:25 14:25 RDW 15.4 H AST 44 H ALT 82 H Discharge - Discharge Clinical Impression: GERD (gastroesophageal reflux disease) Qualifiers: Esophagitis presence: with esophagitis Qualified Code(s): K21.0 - Gastro- esophageal reflux disease with esophagitis Condition: Stable Disposition: HOME, SELF-CARE Additional Instructions: Reflux Disease (GERD) Gastro-Esophageal Reflux Disease (GERD) is caused by stomach acid refluxing back up into the esophagus. The valve at the end of the esophagus may be weak. This is common in persons with a hiatal hernia. GERD symptoms can include indigestion, chest pain, heartburn, or food "sticking." Certain foods, alcohol, and aspirin can make GERD worse. Treatment depends on the severity. Usually, antacids or acid-suppressing medicines are used. When the esophagus is acutely inflamed, the physician will often prescribe membrane-protective drugs such as Carafate. Some patients benefit from medication such as Reglan that tightens the valve at the top of the stomach. Avoid those foods that bring on your symptoms. For many people, these foods are coffee, chocolate, onions, garlic, and carbonated drinks. Don't use alcohol, aspirin, caffeine, or tobacco. Don't eat late at night -- within 4 hours of bedtime. Don't over-eat. If necessary, elevate the head of your bed about 4 inches so that stomach acid will not roll up into your esophagus. Call the doctor if you develop severe chest pain, inability to swallow fluids, fever, or worsening symptoms. Please keep the appointment you have scheduled with your primary care provider. They may end up wanting to refer you to see a quill skinner which is a doctor that specializes in the GI tract. Try taking the omeprazole, you can also purchase this [id number]. Prescriptions: Omeprazole 40 mg PO DAILY #30 capsule. Ondansetron [Zofran Odt 4 mg Tablet] 1 - 2 tab PO Q4H PRN #15 tab.rapdis PRN Reason: For Nausea/Vomiting
[2018-10-20 17:40] VITALS: BP 130/84
--- NOTE | 2018-10-21 07:29 | EKG REPORT ---
SEVERITY:- NORMAL ECG - SINUS RHYTHM : Confirmed by: Gregoria Card MD 21-Oct-2018 07:28:50
== END 2018-10-20 17:41 | disposition home or self-care (01) ==
LOC: ER 13:50
DX: K21.0 Gastro-esophageal reflux disease with esophagitis (principal); R11.10 Vomiting, unspecified; Z87.891 Personal history of nicotine dependence
CPT/HCPCS: 93005; 99284; 36415; 84703; 85025; 80053; 81001; 93010; S0119; J3490